=== PATIENT | male | born 1930 | race Two or more races ===

== ENCOUNTER → 2016-08-31 | Outpatient (CLI) | payer MEDICARE, MEDICAID, OTHER ==
[~2016-08-31] MED LIST: REGADENOSON 0.4 MG/5 ML PF SYRINGE IVP ONE; SESTAMIBI TC99M/UD ISOTOPE 1 EA INJ INJ ONE
[2016-08-31 09:00] VITALS: BP 145/59
[2016-08-31 13:18] VITALS: BP 150/52
== END | disposition home or self-care (01) ==
LOC: CARDMN 08:24
PROVIDERS: ATTEND Internal Medicine Cardiovascular Disease
DX: Z01.810 Encounter for preprocedural cardiovascular examination (principal); C64.2 Malignant neoplasm of left kidney, except renal pelvis; I69.320 Aphasia following cerebral infarction; A41.89 Other specified sepsis; I65.23 Occlusion and stenosis of bilateral carotid arteries
CPT/HCPCS: 78452; 93017; 93306; 93880; A9500; J2785